=== PATIENT | male | born 1995 | race Caucasian/White ===

== ENCOUNTER → 2016-10-19 | Outpatient (CLI) | payer OTHER ==
[~2016-10-19] MED LIST: IOHEXOL 240 MG/ML 50ML VIAL. PO ONE; IOHEXOL 300 MG/ML 100ML VIAL. IV ONE; VARE0.5T PO
--- NOTE | 2016-10-19 11:46 | KCIC ---
PROCEDURE Abdomen and pelvis CT with intravenous contrast. HISTORY Bilateral lower quadrant pain. TECHNIQUE Computed tomographic images of the abdomen pelvis were obtained following the administration of 100 cc Omnipaque 300 intravenous contrast. One or more of the following individualized dose reduction techniques were utilized for this examination: 1. Automated exposure control; 2. Adjustment of the mA and/or kV according to patient size; 3. Use of iterative reconstruction technique. COMPARISON None. FINDINGS Evaluation of the lower thorax demonstrates no infiltrate or effusion. The heart is normal in size. No hepatic lesion is seen. The gallbladder, pancreas, adrenal glands and kidneys are unremarkable. The spleen is upper normal in size. The appendix is normal in caliber. No abnormally dilated or thickened loop of bowel is seen. The bladder is unremarkable. There are multiple prominent lymph nodes within the mesentery, primarily pericecal in distribution. No suspicious osseous lesion is seen. IMPRESSION 1. Multiple prominent mesenteric lymph nodes, primarily pericecal in distribution. This can be physiologic in a patient of this age. However, the differential also includes mesenteric adenitis. 2. Upper normal spleen size. Electronically signed by: Sara Manley (Oct 19, 2016 11:44:31)
== END | disposition home or self-care (01) ==
LOC: KCIC CT 08:24
PROVIDERS: ATTEND Family Medicine
DX: R10.32 Left lower quadrant pain (principal); R10.31 Right lower quadrant pain
CPT/HCPCS: 74177; Q9966; Q9967

== ENCOUNTER → 2017-01-21 | Outpatient (CLI) | payer OTHER ==
[~2017-01-21] MED LIST changes: -IOHEXOL 240 MG/ML 50ML VIAL. PO ONE; -IOHEXOL 300 MG/ML 100ML VIAL. IV ONE
--- NOTE | 2017-01-21 08:27 | RAD ---
Indication:Abdominal pain Grayscale images of the abdomen were obtained. Comparison none. Note is made of a CT examination of the abdomen and pelvis 10/19/2016. Liver:The visualized liver appears unremarkable. Gallbladder:Normal. The common bile duct diameter of approximately 4 mm is normal Spleen:Upper limits of normal in size Pancreas:The portion of the head and proximal body of the pancreas which was seen appears unremarkable. The more distal body and tail were obscured Kidneys:Somewhat small but otherwise unremarkable. Abdominal aorta and IVC:The portion of the inferior vena cava which was seen appeared normal. The proximal and mid abdominal aorta appeared unremarkable. The more distal abdominal aorta was obscured Ancillary findings:None Impression:Midline structures partially obscured. No definite acute or significant finding seen on abdominal ultrasound exam
== END | disposition home or self-care (01) ==
LOC: US 06:07
PROVIDERS: ATTEND Family Medicine
DX: R10.9 Unspecified abdominal pain (principal)
CPT/HCPCS: 76700

== ENCOUNTER 2018-11-01 06:00 | Emergency (ER) | payer SELFPAY ==
[~2018-11-01] VITALS: Ht 170.2 cm; Wt 106.6 kg
[2018-11-01 06:10] VITALS: BP 118/65
[2018-11-01] MEDS ORDERED: ONDA8TAB9 PO (06:22)
--- NOTE | 2018-11-01 06:23 | PHYS DOC ---
Adult General Chief Complaint Chief Complaint: TOOTH ACHE OR PAIN HPI HPI Patient is a 23 year old L presented to ER today for evaluation of right-sided lower dental pain for a week, he went to see a dentist yesterday who put him on amoxicillin, ibuprofen. Patient said he had not been able to keep anything down , nausea vomiting. Patient feels weak and dizzy. He said his third right lower wisdom tooth impacted and infected. He is scheduled to see an ORAL SURGEON THE FIRST WEEK OF NOVEMBER FOR EXTRACTION. he denies any neck pain, no headache. He can open and close his mouth without a problem. Review of Systems Review of Systems Constitutional: Denies fever or chills. POSITIVE FOR FEELING WEAK AND DIZZY. Eyes: Denies change in visual acuity, redness, or eye pain [] HENT: Denies nasal congestion or sore throat. POSITIVE FOR DENTAL PAIN Respiratory: Denies cough or shortness of breath [] Cardiovascular: No additional information not addressed in HPI [] GI: Denies abdominal pain, POSITIVE FOR nausea, vomiting, NO bloody stools or diarrhea [] : Denies dysuria or hematuria [] Musculoskeletal: Denies back pain or joint pain [] Integument: Denies rash or skin lesions [] Neurologic: Denies headache, focal weakness or sensory changes [] Endocrine: Denies polyuria or polydipsia [] All other systems were reviewed and found to be within normal limits, except as documented in this note. Current Medications Current Medications Current Medications Medications (Trade) Dose Ordered Sig/Blanca Start Time Stop Time Status Last Admin Dose Admin Ketorolac Tromethamine (Toradol 30mg Vial) 30 mg 1X ONCE 11/01/18 06:30 11/01/18 06:31 DC 11/01/18 06:37 30 MG Ondansetron HCl (Zofran) 8 mg 1X ONCE 11/01/18 06:30 11/01/18 06:31 DC 11/01/18 06:37 8 MG Piperacillin Sod/ Tazobactam Sod 3.375 gm/Sodium Chloride 50 ml @ 100 mls/hr 1X ONCE 11/01/18 07:00 11/01/18 07:29 11/01/18 06:36 100 MLS/HR Sodium Chloride 1,000 ml @ 1,000 mls/hr 1X ONCE 11/01/18 06:30 11/01/18 07:29 11/01/18 06:37 1,000 MLS/HR Allergies Allergies Allergies Coded Allergies Type Severity Reaction Last Updated Verified No Known Drug Allergies 10/19/16 No Physical Exam Physical Exam Constitutional: Well developed, well nourished, no acute distress, non-toxic appearance. [] HENT: Normocephalic, atraumatic, bilateral external ears normal, oropharynx moist, no oral exudates, nose normal. RIGHT LOWER THIRD WISDOM TOOTH IS TENDER , SWELLING, NO PALPABLE ABSCESS. NO TRISMUS. Eyes: PERRLA, EOMI, conjunctiva normal, no discharge. [] Neck: Normal range of motion, no tenderness, supple, no stridor. [] Cardiovascular:Heart rate regular rhythm, no murmur [] Lungs & Thorax: Bilateral breath sounds clear to auscultation [] Abdomen: Bowel sounds normal, soft, no tenderness, no masses, no pulsatile masses. [] Skin: Warm, dry, no erythema, no rash. [] Back: No tenderness, no CVA tenderness. [] Extremities: No tenderness, no cyanosis, no clubbing, ROM intact, no edema. [] Neurologic: Alert and oriented X 3, normal motor function, normal sensory function, no focal deficits noted. [] Psychologic: Affect normal, judgement normal, mood normal. [] Current Patient Data Vital Signs Vital Signs Date Time Temp Pulse Resp B/P (MAP) Pulse Ox O2 Delivery O2 Flow Rate FiO2 11/01/18 06:10 98.3 72 16 118/65 (82) 98 Room Air 98.3 Lab Values Laboratory Tests Test 11/01/18 06:30 White Blood Count 7.2 x10^3/uL (4.0-11.0) Red Blood Count 5.15 x10^6/uL (4.30-5.70) Hemoglobin 14.7 g/dL (13.0-17.5) Hematocrit 43.6 % (39.0-53.0) Mean Corpuscular Volume 85 fL (79-100) Mean Corpuscular Hemoglobin 29 pg (25-35) Mean Corpuscular Hemoglobin Concent 34 g/dL (31-37) Red Cell Distribution Width 12.9 % (11.5-14.5) Platelet Count 185 x10^3/uL (140-400) Neutrophils (%) (Auto) 69 % (31-73) Lymphocytes (%) (Auto) 18 % (24-48) L Monocytes (%) (Auto) 11 % (0-9) H Eosinophils (%) (Auto) 1 % (0-3) Basophils (%) (Auto) 1 % (0-3) Neutrophils # (Auto) 5.0 x10^3uL (1.8-7.7) Lymphocytes # (Auto) 1.3 x10^3/uL (1.0-4.8) Monocytes # (Auto) 0.8 x10^3/uL (0.0-1.1) Eosinophils # (Auto) 0.1 x10^3/uL (0.0-0.7) Basophils # (Auto) 0.0 x10^3/uL (0.0-0.2) Sodium Level 138 mmol/L (136-145) Potassium Level 4.1 mmol/L (3.5-5.1) Chloride Level 101 mmol/L (98-107) Carbon Dioxide Level 26 mmol/L (21-32) Anion Gap 11 (6-14) Blood Urea Nitrogen 13 mg/dL (8-26) Creatinine 1.2 mg/dL (0.7-1.3) Estimated GFR (Cockcroft-Gault) 75.7 BUN/Creatinine Ratio 11 (6-20) Glucose Level 105 mg/dL (70-99) H Calcium Level 8.7 mg/dL (8.5-10.1) Total Bilirubin 0.7 mg/dL (0.2-1.0) Aspartate Amino Transferase (AST) 36 U/L (15-37) Alanine Aminotransferase (ALT) 43 U/L (16-63) Alkaline Phosphatase 89 U/L (46-116) Total Protein 7.7 g/dL (6.4-8.2) Albumin 4.1 g/dL (3.4-5.0) Albumin/Globulin Ratio 1.1 (1.0-1.7) Laboratory Tests 11/01/18 06:30 Laboratory Tests 11/01/18 06:30 EKG EKG [] Radiology/Procedures Radiology/Procedures [] Course & Med Decision Making Course & Med Decision Making Pertinent Labs and Imaging studies reviewed. (See chart for details) Patient felt much better, will discharge him home with zofran. He will need to continue taking the antibiotic and follow up with the oral surgeon as scheduled. Kyung Disclaimer Darylon Disclaimer This electronic medical record was generated, in whole or in part, using a voice recognition dictation system. Departure Departure Impression: Primary Impression: Pain, dental Additional Impressions: Nausea and vomiting Dehydration Disposition: HOME, SELF-CARE Condition: STABLE Referrals: NO PCP (PCP) FOLLOW UP WITH YOUR DENTIST SCHEDULED. Patient Instructions: Dental Pain, Nausea and Vomiting Scripts Ondansetron Hcl (ZOFRAN) 8 Mg Tablet 1 TAB PO Q8HRS PRN for NAUSEA, #20 TAB 0 Refills Prov: SAMANTHA JUNG DO 11/01/18 Problem Qualifiers SAMANTHA JUNG DO Nov 01, 2018 06:23
[2018-11-01] MEDS ORDERED: ONDANSETRON PF 4 MG/2 ML VIAL. IV ONE (06:30)
[2018-11-01] MEDS ORDERED: IV NORMAL SALINE 1000ML BAG 1,000 ML IV ONE (06:30)
[2018-11-01] MEDS ORDERED: KETOROLAC 30 MG/ML VIAL. IV ONE (06:30)
[2018-11-01 06:38] LABS: BASO % 1 % (0-3); EOS # 0.1 x10^3/uL (0.0-0.7); EOS % 1 % (0-3); HEMATOCRIT 43.6 % (39.0-53.0); HEMOGLOBIN 14.7 g/dL (13.0-17.5); LYMPH # 1.3 x10^3/uL (1.0-4.8); LYMPH % 18 % (24-48); MEAN CORPUSCULAR HEMOGLOBIN 29 pg (25-35); MEAN CORPUSCULAR HGB CONC 34 g/dL (31-37); MEAN CORPUSCULAR VOLUME 85 fL (79-100); MONO # 0.8 x10^3/uL (0.0-1.1); MONO % 11 % (0-9); NEUT % 69 % (31-73); PLATELET COUNT 185 x10^3/uL (140-400); RED BLOOD COUNT 5.15 x10^6/uL (4.30-5.70); RED CELL DISTRIBUTION WIDTH 12.9 % (11.5-14.5); WHITE BLOOD COUNT 7.2 x10^3/uL (4.0-11.0)
[2018-11-01 07:00] LABS: CALCIUM 8.7 mg/dL (8.5-10.1); CREATININE 1.2 mg/dL (0.7-1.3); GFR 75.7; POTASSIUM 4.1 mmol/L (3.5-5.1)
[2018-11-01] MEDS ORDERED: PIPERACILLIN/TAZOBACTAM 3.375 GM in IV NORMAL SALINE 50ML 50 ML IV ONE (07:00)
[2018-11-01 07:12] LABS: ALBUMIN 4.1 g/dL (3.4-5.0); ALBUMIN/GLOBULIN RATIO 1.1 (1.0-1.7); TOTAL BILIRUBIN 0.7 mg/dL (0.2-1.0); TOTAL PROTEIN 7.7 g/dL (6.4-8.2)
== END 2018-11-01 07:18 | disposition home or self-care (01) ==
LOC: ER 06:00
DX: K08.89 Other specified disorders of teeth and supporting structures (principal); E86.0 Dehydration
CPT/HCPCS: 36415; 80053; 85025; 96365; 96375; 99283; J1885; J2405; J2543; J7030